=== PATIENT | male | born 1960 | race Caucasian/White ===

== ENCOUNTER → 2019-07-21 | Outpatient (CLI) | payer OTHER ==
--- NOTE | 2019-07-21 10:22 | Diagnostic Imaging Report ---
INDICATION: Increasing shortness of breath. PA and lateral views were obtained. FINDINGS: There is a left basilar infiltrate, suspect for pneumonia, with a left pleural effusion. There is cardiomegaly. Right lung is clear. There is no pneumothorax. Mediastinum is unremarkable. IMPRESSION: Left basilar pneumonia and left pleural effusion. Cardiomegaly. Dictated by: Dictated on workstation # [id number]
== END ==
LOC: RAD FS 10:12
PROVIDERS: ATTEND Nurse Practitioner Family
DX: J18.9 Pneumonia, unspecified organism (principal); J90 Pleural effusion, not elsewhere classified
CPT/HCPCS: 71046